=== PATIENT | female | born 1955 | race Caucasian/White ===

== ENCOUNTER 2018-04-12 21:14 | Emergency (ER) | payer OTHER ==
[2018-04-12 21:24] VITALS: BP 155/79
--- NOTE | 2018-04-12 22:42 | UC ---
Shoulder Pain HPI - HPI Summary HPI Summary: 63F with history of hypertension, hyperlipidemia, presents with 1 day of sudden onset left shoulder pain after she fell yesterday on her left shoulder while running in a field. Pain was gradual onset, worsening throughout the day, not associated with any weakness or numbness. Denies any fevers. No prior episodes. Patient took Advil without relief today. No remitting factors. Worse with movement of the left shoulder. - History of Current Complaint Chief Complaint: UCUpperExtremity Stated Complaint: SHOULDER INJURY Hx Obtained From: Patient Onset/Duration: Gradual Onset Timing: Days - 1 Severity Initially: Moderate Severity Currently: Moderate Location Of Pain: Is Diffuse Pain Intensity: 10 Character: Aching - Allergies/Home Medications Allergies/Adverse Reactions: Allergies Allergy/AdvReac Type Severity Reaction Status Date / Time No Known Allergies Allergy Verified 04/12/18 21:24 Home Medications: Home Medications Atorvastatin* [Lipitor 10 MG*] 10 mg PO DAILY 04/12/18 [History Confirmed ] Lisinopril [Lisinopril 2.5 MG-] 2.5 mg PO DAILY 04/12/18 [History Confirmed ] PMH/Surg Hx/FS Hx/Imm Hx - Additional Past Medical History Additional PMH: Hypertension, hyperlipidemia - Surgical History Surgical History: None - Social History Alcohol Use: Rare Substance Use Type: None Smoking Status (MU): Never Smoked Tobacco Review of Systems Constitutional: Negative Skin: Negative Eyes: Negative Respiratory: Negative Cardiovascular: Negative Musculoskeletal: Other: - Shoulder pain as outlined in history of present illness Neurological: Negative All Other Systems Reviewed And Are Negative: Yes Physical Exam Triage Information Reviewed: Yes Appearance: Well-Appearing Vital Signs: Initial Vital Signs Temp 37.3 C 04/12/18 21:19 Pulse 68 04/12/18 21:19 Resp 16 04/12/18 21:19 BP 155/79 04/12/18 21:19 Pulse Ox 100 04/12/18 21:19 Vital Signs Reviewed: Yes Eye Exam: Normal ENT Exam: Normal Neck exam: Normal Neck: Positive: Supple Respiratory Exam: Normal Cardiovascular Exam: Normal Cardiovascular: Positive: RRR, Other: - Normal distal pulses bilaterally in the radial areas Abdominal Exam: Normal Musculoskeletal Exam: Other - Diffuse tenderness of the left shoulder, limited range of motion secondary to pain. Minimal swelling, no redness. Distal neurovascular exam intact with normal range of motion of the wrist and hands bilaterally. No obvious external signs of trauma. No clavicular tenderness. Neurological Exam: Normal Neurological: Positive: Alert Psychological Exam: Normal Skin Exam: Normal Diagnostics - Radiology no acute fractures or dislocations on left shoulder x-ray Xray Interpretation: No Acute Changes - No acute fractures or dislocations, on L shoulder x-ray Shoulder Course/Dx - Course Assessment/Plan: Distal neurovascular exam remains intact. No acute fractures or dislocations on x-ray, patient instructed to follow up with orthopedist for further evaluation. Agrees to and understands discharge instructions. - Differential Dx/Diagnosis Provider Diagnoses: Shoulder pain Left Discharge - Sign-Out/Discharge Documenting (check all that apply): Patient Departure - home All imaging exams completed and their final reports reviewed: Yes - Discharge Plan Condition: Stable Disposition: HOME Patient Education Materials: Rotator Cuff Injury (ED) Referrals: Sara Hobbs MD [Medical Doctor] - Praful Barajas MD [Medical Doctor] - Katharine Monterroso RN [Primary Care Provider] - Additional Instructions: PLEASE MAKE AN APPOINTMENT TO SEE AN ORTHOPEDIST WITHIN 1 WEEK. PLEASE ALTERNATE ICE AND HEAT AND USE ADVIL 2 TABS NOT MORE THAN TWICE DAILY. PLEASE SEEK IMMEDIATE MEDICAL ATTENTION FOR ANY WORSENING OR CONCERNING SYMPTOMS DO NOT KEEP YOUR SLING ON FOR MORE THAN 48 HOURS - Billing Disposition and Condition Condition: STABLE Disposition: Home - Attestation Statements Document Initiated by Scribe: No
--- NOTE | 2018-04-13 08:13 | RAD ---
INDICATION: Left shoulder pain COMPARISON: None TECHNIQUE: Routine frontal, Y and axial views were obtained. FINDINGS: There are no acute bony findings. There is minor glenohumeral osteoarthritis. There is calcific tendinitis. IMPRESSION: MINOR OSTEOARTHRITIS. CALCIFIC TENDINITIS. R1
== END 2018-04-12 23:00 | disposition home or self-care (01) ==
LOC: UCEAST 21:14
DX: M25.512 Pain in left shoulder (principal); I10 Essential (primary) hypertension; E78.5 Hyperlipidemia, unspecified; Z79.899 Other long term (current) drug therapy; W19.XXXA Unspecified fall, initial encounter; Y93.02 Activity, running; Y92.89 Other specified places as the place of occurrence of the external cause
CPT/HCPCS: 99202; G0463